=== PATIENT | male | born 1955 | race Native Hawaiian/Other Pacific Islander ===

== ENCOUNTER 2020-01-13 09:43 | Emergency (ER) | payer OTHER ==
[~2020-01-13] VITALS: Ht 180.3 cm; Wt 115.7 kg
[2020-01-13 09:55] VITALS: TEMP 98
[2020-01-13] MEDS ORDERED: METF500T PO (10:12)
[2020-01-13] MEDS ORDERED: COZAAR100 MG PO (10:13)
[2020-01-13 11:25] VITALS: BP 119/68
== END 2020-01-13 11:25 | disposition home or self-care (01) ==
LOC: ED 09:43
PROC: 0HQGXZZ Repair Left Hand Skin, External Approach (ICD-10-PCS; principal; 2020-01-13)
DX: S61.211A Laceration without foreign body of left index finger without damage to nail, initial encounter (principal); W23.0XXA Caught, crushed, jammed, or pinched between moving objects, initial encounter; Y92.89 Other specified places as the place of occurrence of the external cause
CPT/HCPCS: 99283